=== PATIENT | female | born 1985 | race Caucasian/White ===

== ENCOUNTER 2018-12-30 21:52 | Emergency (ER) | payer BC ==
[2018-12-30] MEDS: ONDANSETRON (ODT) 4 MG TAB ODT (22:30)
[2018-12-30] MEDS: KETOROLAC 30 MG INJ IM (22:36)
== END 2018-12-30 23:17 | disposition home or self-care (01) ==
LOC: FTE 21:52
DX: R51 Headache (principal); E03.9 Hypothyroidism, unspecified
CPT/HCPCS: 81025; 96372; 99284-25